=== PATIENT | male | born 1985 | race African-American/Black ===

== ENCOUNTER 2018-05-27 19:28 | Emergency (ER) | payer OTHER ==
[~2018-05-27] VITALS: Ht 180.3 cm; Wt 123.1 kg
[2018-05-27] MEDS ORDERED: IBUPROFEN 600 MG TAB PO STA (21:05)
[2018-05-27 21:16] VITALS: BP 122/85
== END 2018-05-27 20:14 | disposition home or self-care (01) ==
LOC: FSED 19:28
DX: S16.1XXA Strain of muscle, fascia and tendon at neck level, initial encounter (principal); V43.52XA Car driver injured in collision with other type car in traffic accident, initial encounter; F17.200 Nicotine dependence, unspecified, uncomplicated; Y92.410 Unspecified street and highway as the place of occurrence of the external cause
CPT/HCPCS: 99283